=== PATIENT | female | born 1965 | race African-American/Black ===

== ENCOUNTER → 2017-09-30 | Outpatient (CLI) | payer MEDICARE ==
[~2017-09-30] MED LIST: CLONAZEPAM1 MG PO; GEODON 20 MG20 MG PO; LAMICTAL 100MG100 MG PO; REMERON15 MG PO; SEROQUEL PO; TRAZODONE HCL100 MG PO; ZOLOFT100 MG PO
== END ==
LOC: SUN.DIA 12:50
DX: E11.9 Type 2 diabetes mellitus without complications (principal); E66.9 Obesity, unspecified; Z68.37 Body mass index [BMI] 37.0-37.9, adult; Z71.3 Dietary counseling and surveillance; F17.210 Nicotine dependence, cigarettes, uncomplicated
CPT/HCPCS: G0108

== ENCOUNTER → 2018-06-11 | Outpatient (CLI) | payer MEDICARE | LOC: COL.RAD 09:09 | DX: R10.84 Generalized abdominal pain (principal); R16.0 Hepatomegaly, not elsewhere classified ==

== ENCOUNTER → 2019-09-02 | Outpatient (CLI) | payer MEDICARE, MEDICAID ==
[2019-09-02 11:26] LABS: MEAN CELL VOLUME 66 fl (80.0-100.0); MEAN CORPUSCULAR HGB CONC 28 g/dl (33.0-37.0); MEAN PLATELET VOLUME 8.5 fl (7.4-10.4); PLATELET COUNT 400 K/mm3 (130-400); RED BLOOD COUNT 4.73 M/mm3 (4.10-5.30); REDCELL DISTRIBUTION WIDTH-CV 19.8 % (11.5-14.5)
[2019-09-02 11:30] LABS: HEMATOCRIT 31.4 % (37.0-47.0); HEMOGLOBIN 8.7 g/dl (12.5-16.0); MEAN CORPUSCULAR HEMOGLOBIN 18 pg (27.0-31.0)
[2019-09-02 12:04] LABS: ALBUMIN 4.3 gm/dL (3.5-5.0); BILIRUBIN,TOTAL 0.3 mg/dL (0.0-1.0); CALCIUM 9.4 mg/dL (8.4-10.2); CREATININE, serum 0.82 (0.52-1.25); ERYTHROCYTE SEDIMENTATION RATE 16 mm/hr (0-30); POTASSIUM 3.8 mmol/L (3.4-5.0); TOTAL PROTEIN 7.4 gm/dL (6.4-8.2)
[2019-09-04 18:33] LABS: CADMIUM BLOOD <0.2 ng/mL (0.0-4.9); LEAD,SERUM** <1.0 mcg/dL (0.0-4.9); MERCURY,SERUM <1 ng/mL (0-9)
== END ==
LOC: COL.RAD 08:37
PROVIDERS: Psychiatry & Neurology Neurology
DX: F03.91 Unspecified dementia, unspecified severity, with behavioral disturbance (principal); R41.82 Altered mental status, unspecified

== ENCOUNTER 2023-01-30 15:48 | Inpatient (IN) | payer MEDICARE, MEDICAID ==
[2023-01-30] VITALS (322 sets, daily range): BP systolic 135; BP diastolic 81; PULSE 108; TEMP 98.7; O2SAT 89–100
[~2023-01-30] VITALS: Wt 114.7 kg
[~2023-01-30 15:48] MED LIST changes: +DESYREL 100MG100 MG PO; -GEODON 20 MG20 MG PO; +GEODON60 MG PO; -TRAZODONE HCL100 MG PO
--- NOTE | 2023-01-30 18:19 | NUR ---
1657 PT ARRIVED TO UNIT VIA ER BED. PT ALERT AND ORIENTED ABOUT TO SELF TRANFER ONTO ICU BED. BELONGINGS INCLUDE WALLET, CELL PHONE AND CLOTHES. PT ASKED IF SHE WOULD LIKE WALLET OR ANY ITEMS TAKEN TO SECURITY PT DENCLINED.
[2023-01-30] MEDS ORDERED: NEURONTIN600 MG/TAB PO (18:35)
[2023-01-30] MEDS ORDERED: ATIVAN2 MG PO (18:36)
[2023-01-30] MEDS ORDERED: ATARAX 25MG25 MG/TAB PO (18:37)
[2023-01-30] MEDS ORDERED: COGENTIN 2MG2 MG/TA1 PO (18:38)
[2023-01-30] MEDS ORDERED: CYMBALTA 60MG60 MG PO (18:39)
[2023-01-30] MEDS ORDERED: ELAVIL100 MG PO (18:40)
[2023-01-30] MEDS ORDERED: VICTOZA6 MG/ML SQ (18:41)
[2023-01-30] MEDS ORDERED: CRESTOR 10MG10 MG PO (18:42)
[2023-01-30] MEDS ORDERED: LASIX 20MG TABL20 MG PO (18:43)
[2023-01-30] MEDS ORDERED: NEXIUM 40MG40 MG PO (18:43)
[2023-01-30] MEDS ORDERED: GLUCOPHAGE500 MG/TAB PO (18:43)
[2023-01-30] MEDS ORDERED: NORVASC 10MG10 MG PO (18:44)
[2023-01-30] MEDS ORDERED: INDERAL 20MG20 MG PO (18:45)
[2023-01-30] MEDS ORDERED: PRINIVIL5 MG PO (18:46)
[2023-01-30] MEDS ORDERED: LATUDA80 MG PO (18:46)
[2023-01-30] MEDS ORDERED: ZOVIRAX400 MG PO (18:47)
[2023-01-30] MEDS ORDERED: MIRAPEX 0.0.125 MG/T PO (18:47)
[2023-01-30] MEDS ORDERED: FLEXERIL 1010 MG/TAB PO (18:48)
[2023-01-30] MEDS ORDERED: SAPHRIS10 MG SL (18:50)
--- NOTE | 2023-01-30 19:00 | NUR ---
REPORT RECEIVED FROM ALENA VELAZQUEZ. PATIENT RESTING IN BED ON 2L NC. NO SIGNS OF ACUTE DISTRESS NOTED AT THIS TIME.
[2023-01-31] VITALS (636 sets, daily range): BP systolic 116–138; BP diastolic 65–74; PULSE 106–111; TEMP 98.4–98.5; O2SAT 89–100
[2023-01-31 05:27] LABS: BASO % 0.1 % (0.0-2.0); GRAN % 88.4 % (42.2-75.2); LYMPH # 1.3 K/mm3 (1.2-3.4); LYMPH % 10.4 % (20.0-51.0); MEAN CELL VOLUME 72 fl (80.0-100.0); MEAN CORPUSCULAR HGB CONC 29 g/dl (33.0-37.0); MEAN PLATELET VOLUME 9.1 fl (7.4-10.4); MONO # 0.1 K/mm3 (0.1-0.6); MONO % 0.8 % (1.7-9.3); PLATELET COUNT 375 K/mm3 (130-400); RED BLOOD COUNT 4.11 M/mm3 (4.10-5.30); REDCELL DISTRIBUTION WIDTH-CV 17.4 % (11.5-14.5)
[2023-01-31 05:35] LABS: HEMATOCRIT 29.4 % (37.0-47.0); HEMOGLOBIN 8.6 g/dl (12.5-16.0); MEAN CORPUSCULAR HEMOGLOBIN 21 pg (27-31)
[2023-01-31 05:51] LABS: ALBUMIN 3.7 gm/dL (3.5-5.0); BILIRUBIN,TOTAL 0.2 mg/dL (0.2-1.2); CALCIUM 9.5 mg/dL (8.4-10.2); CREATININE, serum 0.99 mg/dL (0.57-1.11); POTASSIUM 4.1 mmol/L (3.5-4.5); TOTAL PROTEIN 6.9 gm/dL (6.2-8.1)
--- NOTE | 2023-01-31 07:13 | NUR ---
Report received form ALENA Aquino. Labs reviewed. No IVF infusing. Reviewed POC. Call light within reach. Will continue with POC.
[2023-01-31] MEDS ORDERED: RAZADYNE12 MG PO (08:48)
[2023-01-31] MEDS ORDERED: NAMENDA XR 28MG PO (08:48)
[2023-01-31] MEDS ORDERED: PREDNISONE20 MG PO (11:20)
[2023-01-31] MEDS ORDERED: BENADRYL50 MG PO (11:20)
[2023-01-31] MEDS ORDERED: PEPCID 20MG TAB20 MG PO (11:21)
--- NOTE | 2023-01-31 12:15 | NUR ---
Discharge instructions provided to pt and her . Attempted to schedule follow up appoinment with Dr. Kidd's office but there was no answer. Pt stated she would rather schedule her own appoinment. Stressed importance of not taking lisinopril and to avoid pineapple and shrimp until seen by an hog sticker. Pt verbalized understanding. Stressed importance of calling to schedlue appoinment, both pt and her verbalized understanding. Reviewed new medications. All questions answered. IV discontinued. Pt escorted out at 1210.
== END 2023-01-31 12:10 | disposition home or self-care (01) | DRG 916 ==
LOC: COL.ER 15:48 → ICU 16:05
PROVIDERS: ADMIT Internal Medicine
DX: T78.3XXA Angioneurotic edema, initial encounter (principal); E11.9 Type 2 diabetes mellitus without complications; Z79.84 Long term (current) use of oral hypoglycemic drugs; E11.40 Type 2 diabetes mellitus with diabetic neuropathy, unspecified; F41.9 Anxiety disorder, unspecified; G47.00 Insomnia, unspecified; F03.90 Unspecified dementia, unspecified severity, without behavioral disturbance, psychotic disturbance, mood disturbance, and anxiety; E78.5 Hyperlipidemia, unspecified; K21.9 Gastro-esophageal reflux disease without esophagitis; Z66 Do not resuscitate
CPT/HCPCS: J2920; J7120